=== PATIENT | male | born 1970 | race Caucasian/White ===

== ENCOUNTER 2021-10-17 02:27 | Inpatient (IN) | payer MEDICARE, OTHER ==
[~2021-10-17] VITALS: Ht 177.8 cm; Wt 83.9 kg
[2021-10-17] MEDS ORDERED: NITROGLYCERIN OINT 1 GM PACKET TP ONE ×2 (02:45→02:53)
[2021-10-17] MEDS ORDERED: ONDANSETRON 4 MG/2 ML VIAL IV ONE (02:45)
[2021-10-17] MEDS ORDERED: HYDROMORPHONE 1 MG/1 ML DISP.SYRIN IV ONE ×2 (02:45)
[2021-10-17] MEDS ORDERED: ONDANSETRON 4 MG/2 ML VIAL ONE (02:52)
[2021-10-17 02:55] LABS: HEMATOCRIT 42.4 % (36.7-47.1); MEAN CORPUSCULAR HEMOGLOBIN 32.7 uug (23.8-33.4); MEAN CORPUSCULAR VOLUME 95.4 fL (73.0-96.2); PLATELET COUNT (AUTO) 197 K/uL (152-348)
[2021-10-17] MEDS ORDERED: HYDROMORPHONE 1 MG/1 ML DISP.SYRIN ONE (02:55)
[2021-10-17 03:02] LABS: CREATININE 0.7 mg/dL (0.6-1.3); POTASSIUM 4.5 mmol/L (3.5-5.1)
[2021-10-17 03:15] LABS: BILIRUBIN,DIRECT 0.1 mg/dL (0.0-0.2); BILIRUBIN,TOTAL 0.3 mg/dL (0.2-1.0); TOTAL PROTEIN, SERUM 7.2 g/dL (6.4-8.2)
[2021-10-17] MEDS ORDERED: IV NORMAL SALINE 500 ML BAG IV ONE (03:15)
[2021-10-17] MEDS ORDERED: ASPI81TA31 GT (03:32)
[2021-10-17] MEDS ORDERED: OMEG1CAP40 GT (03:32)
[2021-10-17] MEDS ORDERED: LISI2.5T14 GT (03:32)
[2021-10-17] MEDS ORDERED: LEVE100S GT (03:32)
[2021-10-17] MEDS ORDERED: CHLO473M3 PO (03:32)
[2021-10-17] MEDS ORDERED: MELA5TAB GT (03:32)
[2021-10-17] MEDS ORDERED: NICO-671 TD (03:32)
[2021-10-17] MEDS ORDERED: OMEP20CA15 GT (03:32)
[2021-10-17] MEDS ORDERED: FLORASTOR GT (03:32)
[2021-10-17] MEDS ORDERED: GUAIFENESIN SYRUP GT (03:32)
[2021-10-17] MEDS ORDERED: AMIO200T5 GT (03:32)
[2021-10-17] MEDS ORDERED: MULT-213 GT (03:32)
[2021-10-17] MEDS ORDERED: ACET-2154 GT (03:32)
[2021-10-17] MEDS ORDERED: OXYC5TAB3 GT (03:32)
[2021-10-17] MEDS ORDERED: METO50TA16 GT (03:32)
[2021-10-17] MEDS ORDERED: QUET25TA36 GT (03:32)
[2021-10-17] MEDS ORDERED: METF-440 GT (03:32)
[2021-10-17] MEDS ORDERED: DOCU100C36 GT (03:32)
[2021-10-17] MEDS ORDERED: SPIR25TA6 GT (03:32)
[2021-10-17] MEDS ORDERED: INSULIN GLARGINE SUBCUT (03:32)
[2021-10-17] MEDS ORDERED: BISA10SU61 RC (03:32)
[2021-10-17] MEDS ORDERED: NA P133E RC (03:32)
[2021-10-17] MEDS ORDERED: RIVA10TA GT (03:32)
[2021-10-17] MEDS ORDERED: ASCO500C18 GT (03:32)
[2021-10-17] MEDS ORDERED: SENN-18 GT (03:32)
[2021-10-17] MEDS ORDERED: AMIN30LI2 GT (03:32)
[2021-10-17] MEDS ORDERED: IPRA4AER IH (03:32)
[2021-10-17] MEDS ORDERED: MAG30ORA GT (03:32)
[2021-10-17] MEDS ORDERED: ATOR80TA GT (03:32)
[2021-10-17] MEDS ORDERED: MAGN400O6 GT (03:32)
[2021-10-17] MEDS ORDERED: ONDA-104 GT (03:32)
[2021-10-17] MEDS ORDERED: BROM2.5T15 GT (03:32)
--- NOTE | 2021-10-17 03:59 | NUR ---
Bed assignment 318
--- NOTE | 2021-10-17 04:22 | NUR ---
Called [facility] for panel call, Stephany Beyer was paged.
[2021-10-17] MEDS ORDERED: DEXTROSE 50% 50 ML DISP.SYRIN IV PRN (04:30)
[2021-10-17] MEDS ORDERED: ONDANSETRON HCL 4 MG TABLET GT PRN (04:30)
[2021-10-17] MEDS ORDERED: ACETAMINOPHEN 325 MG TABLET-SA PATIENTS-PAIN ONLY GT PRN (04:30)
[2021-10-17] MEDS ORDERED: BISACODYL 10 MG SUPP.RECT RC PRN (04:30)
[2021-10-17] MEDS ORDERED: MAGNESIUM HYDROXIDE 30 ML LIQUID UDC GT PRN (04:30)
[2021-10-17] MEDS ORDERED: MAG HYDROX/AL HYDROX/SIMETH 30 ML LIQUID UDC GT PRN (04:30)
[2021-10-17] MEDS ORDERED: INSULIN REGULAR, HUMAN 300 UNIT/3 ML VIAL SQ PRN (04:30)
[2021-10-17] MEDS ORDERED: OXYCODONE HCL 5 MG TABLET GT PRN (04:30)
[2021-10-17] MEDS ORDERED: FLEET ENEMA 133 ML BOTTLE RC PRN (04:30)
[2021-10-17] MEDS ORDERED: Z GUARD REMEDY PASTE 57 GM TUBE TOP PRN (04:30)
[2021-10-17] MEDS ORDERED: ACETAMINOPHEN 325 MG TABLET PO PRN (04:30)
[2021-10-17] MEDS ORDERED: HYDROMORPHONE 1 MG/1 ML DISP.SYRIN IV PRN (04:30)
[2021-10-17] MEDS ORDERED: ONDANSETRON 4 MG/2 ML VIAL IV PRN (04:30)
[2021-10-17] MEDS ORDERED: MAGNESIUM HYDROXIDE 30 ML LIQUID UDC PO PRN (04:30)
--- NOTE | 2021-10-17 06:15 | NUR ---
RECEIVED PATIENT VIA GURNEY FROM ER. PATIENT IS A/O X2-3. C/O PAIN ON LEFT SIDE. DENIES ANY "CHEST PAIN." ON O2 2L NC SATING WELL. NO RESP. DISTRESS NOTED. PATIENT PLACED ON TELE ORDERED, SR WITH 1ST DEGREE AVB. H/L INTACT AND PATENT. ORIENTED TO ROOM AND CALL LIGHT. BLOOD SUGAR TAKEN, 133. NO INSULIN GIVEN AT THIS TIME. PATIENT IS NOT RECEIVING ANY TUBE FEEDING AT THIS TIME. LAB COURIER NOTIFIED. ALL NEEDS ATTENDED.
[2021-10-17] MEDS: BLOOD SUGAR DIAGNOSTIC 1 EACH STRIP VI SCH ×3 (06:24→17:30)
[2021-10-17] MEDS ORDERED: GLUCERNA 1.2 1000ML LIQUID GT PRN (06:45)
[2021-10-17 06:48] VITALS: BP 113/61
--- NOTE | 2021-10-17 07:20 | NUR ---
Received patient resting in bed, easily arousable. On 2L O2 via NC. No signs of acute distress. Patient denies pain/ discomfort at this time. Call light within reach. Bed alarm on for safety. Will continue to monitor.
[2021-10-17] MEDS: PROTEIN SUPPLEMENT (PROSTAT) 30 ML LIQUID PO SCH (08:00)
[2021-10-17] MEDS ORDERED: MELATONIN 3 MG TABLET GT SCH (08:30)
[2021-10-17] MEDS ORDERED: MELATONIN 3 MG TABLET GT PRN (08:30)
[2021-10-17] MEDS: DOCUSATE SODIUM 100 MG/10 ML LIQUID UDC GT SCH ×2 (09:00→17:00)
[2021-10-17] MEDS: NICOTINE 14 MG/24HR PATCH TD SCH (09:00)
[2021-10-17] MEDS ORDERED: Medication Not On Formulary EA (Omega-3 Fatty Acids/Fish Oil (Omega 3 1,000 Mg Softgel) GT SCH (09:00)
[2021-10-17] MEDS ORDERED: Medication Not On Formulary EA (Ascorbic Acid (Vitamin C) 500 MG) GT SCH (09:00)
[2021-10-17] MEDS: levETIRAcetam 500 MG/5 ML LIQUID UDC GT SCH ×2 (09:00→17:00)
[2021-10-17] MEDS: MULTIVIT, IRON, MIN NO. 8, FA TABLET GT SCH (09:00)
[2021-10-17] MEDS ORDERED: Medication Not On Formulary EA (Amino Acids/Protein Hydrolys (Pro-Stat Liquid) 30 ML) GT SCH (09:00)
[2021-10-17] MEDS: ASPIRIN 81 MG TAB.CHEW GT SCH (09:00)
[2021-10-17] MEDS ORDERED: Medication Not On Formulary EA (Multivitamins W-Minerals (Daily Multivitamin-Minerals) 1 GT SCH (09:00)
[2021-10-17] MEDS: LISINOPRIL 5 MG TABLET GT SCH (09:00)
[2021-10-17] MEDS ORDERED: Medication Not On Formulary EA (Omeprazole 20 MG) GT SCH (09:00)
[2021-10-17] MEDS ORDERED: DOCUSATE SODIUM 100 MG CAPSULE PO SCH (09:00)
[2021-10-17] MEDS: SPIRONOLACTONE 25 MG TABLET GT SCH (09:00)
[2021-10-17] MEDS: METOPROLOL TARTRATE 50 MG TABLET GT SCH ×2 (09:00→17:00)
[2021-10-17] MEDS ORDERED: Medication Not On Formulary EA (Bromocriptine Mesylate 2.5 MG) GT SCH (09:00)
[2021-10-17] MEDS: PANTOPRAZOLE ORAL SUSPENSION 40 MG SUSPDR.PKT GT SCH (09:00)
[2021-10-17] MEDS: RIVAROXABAN 10 MG TABLET GT SCH (09:00)
[2021-10-17] MEDS: OMEGA-3 FATTY ACIDS/FISH OIL CAPSULE GT SCH (09:00)
[2021-10-17] MEDS: AMIODARONE HCL 200 MG TABLET GT SCH ×2 (09:00→17:00)
[2021-10-17] MEDS: ASCORBIC ACID 500 MG TABLET GT SCH (09:06)
[2021-10-17] MEDS: CHLORHEXIDINE GLUCONATE 15 ML MOUTHWASH MM SCH ×2 (10:08→17:29)
--- NOTE | 2021-10-17 10:59 | NUR ---
Patient refused blood draw. Explained to patient the need and risks of refusal. Patient verbalized understanding. APPLICATION DEVELOPER MANAGER informed. Will continue to monitor.
[2021-10-17] MEDS: CULTURELLE CAPSULE GT SCH (11:00)
[2021-10-17 11:18] VITALS: BP 98/57
[2021-10-17 16:00] VITALS: BP 103/56
--- NOTE | 2021-10-17 18:42 | NUR ---
Patient resting in bed. AOx4. On 2L O2 via NC, saturating 96-97%. No signs of acute distress. Patient denies chest pain. Sinus Bradycardia with 1st degree HB on monitoring coordinator. Noncompliant with medications. Patient refused all medications, stated that he does not want take medications orally. Patient refused blood draws x3, despite explanation of risks of refusal and need for blood draw. IV access patent and intact. Bed alarm on for safety. Call light within reach. Will endorse to incoming shift for continuity of care.
[2021-10-17 20:00] VITALS: BP 119/65
[2021-10-17] MEDS ORDERED: SENNOSIDES 1 TABLET GT SCH (21:00)
[2021-10-17] MEDS ORDERED: QUETIAPINE FUMARATE 25 MG TABLET GT SCH (21:00)
[2021-10-17] MEDS ORDERED: INSULIN GLARGINE,HUM 300 UNITS/3 ML CARTRIDGE SQ SCH (21:00)
[2021-10-17] MEDS ORDERED: ATORVASTATIN 40 MG TABLET GT SCH (21:00)
[2021-10-17] MEDS ORDERED: Medication Not On Formulary EA (Atorvastatin Calcium (Lipitor) 80 MG) GT SCH (21:00)
[2021-10-17] MEDS ORDERED: Medication Not On Formulary EA (Melatonin 10 MG) GT SCH (21:00)
[2021-10-18] MEDS: BLOOD SUGAR DIAGNOSTIC 1 EACH STRIP VI SCH ×3 (00:02→12:00)
[2021-10-18 00:38] VITALS: BP 115/59
[2021-10-18 04:00] VITALS: BP 120/71
--- NOTE | 2021-10-18 05:57 | NUR ---
Shift End Report: Alert , cooprerative and compliant with the plan of care last night. All needs attended. Medicated for pain, once with OxyIR and the other one Tylenol with both with relief. Slept good after that No s/s of hypo/hyperglycemia. This morning , he refused lab draw and accu-check. quite irritable and upset. Will endorse to oncoming shift. Vs stable. Continue care as planned. No significant event reported all night.
[2021-10-18] MEDS: OMEGA-3 FATTY ACIDS/FISH OIL CAPSULE GT SCH (08:17)
[2021-10-18] MEDS: DOCUSATE SODIUM 100 MG/10 ML LIQUID UDC GT SCH (08:17)
[2021-10-18] MEDS: ASPIRIN 81 MG TAB.CHEW GT SCH (08:17)
[2021-10-18] MEDS: ASCORBIC ACID 500 MG TABLET GT SCH (08:18)
[2021-10-18] MEDS: CULTURELLE CAPSULE GT SCH (08:18)
[2021-10-18] MEDS: MULTIVIT, IRON, MIN NO. 8, FA TABLET GT SCH (08:18)
[2021-10-18] MEDS: SPIRONOLACTONE 25 MG TABLET GT SCH (08:18)
[2021-10-18] MEDS: levETIRAcetam 500 MG/5 ML LIQUID UDC GT SCH (08:19)
[2021-10-18] MEDS: METOPROLOL TARTRATE 50 MG TABLET GT SCH (08:21)
[2021-10-18] MEDS: LISINOPRIL 5 MG TABLET GT SCH (08:21)
[2021-10-18] MEDS: PANTOPRAZOLE ORAL SUSPENSION 40 MG SUSPDR.PKT GT SCH (08:22)
[2021-10-18] MEDS: AMIODARONE HCL 200 MG TABLET GT SCH (08:22)
[2021-10-18] MEDS: CHLORHEXIDINE GLUCONATE 15 ML MOUTHWASH MM SCH (08:23)
[2021-10-18] MEDS: NICOTINE 14 MG/24HR PATCH TD SCH (08:23)
[2021-10-18] MEDS: PROTEIN SUPPLEMENT (PROSTAT) 30 ML LIQUID PO SCH (08:28)
[2021-10-18] MEDS: RIVAROXABAN 10 MG TABLET GT SCH (09:51)
--- NOTE | 2021-10-18 11:00 | NUR ---
received order for discharge.
--- NOTE | 2021-10-18 12:00 | NUR ---
new discharge orders patient to return to [facility] per case management, transportation scheduled for 1500.
--- NOTE | 2021-10-18 12:00 | NUR ---
patient refused blood sugar x3 explained risks and benefits continued to refused stated " no my fingers hurt"
[2021-10-18 12:24] VITALS: BP 111/57
--- NOTE | 2021-10-18 12:49 | NUR ---
report called to len MENDOZA at [facility], all questions answered.
--- NOTE | 2021-10-18 14:15 | NUR ---
discharge orders relayed to patient. explained to follow up with cardiology within 1 week and to follow up with primary healthcare provider. to continue with current medication regimen and to return [facility] or call 911 if symptoms worsen. patient states understanding. belongings list inventory completed. all paperwork signed.
--- NOTE | 2021-10-18 15:25 | NUR ---
patient states it hurts in the middle of my chest, states the pain is just in the center and does not radiate. V/S 113/53 P. 61 RR: 18 t: 98.2 spo2 96 on 2L, on telemetry it shows normal sinus rhythm. Jericho GOMEZ made aware with ok to transfer patient back to [facility].
--- NOTE | 2021-10-18 15:25 | NUR ---
ambulance company accompanied by RT in unit, report given to them all questions answered.
--- NOTE | 2021-10-18 15:30 | NUR ---
called [facility] and informed them of patient w/ c/o pain to mid chest and of stable v/s, normal sinus rhythm spoke to terrence MENDOZA, also informed them that SOLAR SALES AMBASSADOR was aware and with ok to have patient return to facility.
== END 2021-10-18 15:30 | DRG 951 ==
LOC: ER 02:31 → TELE3 03:55
PROVIDERS: ADMIT Nurse Practitioner Family; ATTEND Nurse Practitioner Family
DX: Z76.5 Malingerer [conscious simulation] (principal); I69.354 Hemiplegia and hemiparesis following cerebral infarction affecting left non-dominant side; I42.9 Cardiomyopathy, unspecified; R07.9 Chest pain, unspecified; E11.9 Type 2 diabetes mellitus without complications; E78.5 Hyperlipidemia, unspecified; F17.210 Nicotine dependence, cigarettes, uncomplicated; I48.0 Paroxysmal atrial fibrillation; Z91.19 Patient's noncompliance with other medical treatment and regimen; Z93.1 Gastrostomy status; Z93.0 Tracheostomy status; Z86.718 Personal history of other venous thrombosis and embolism; Z79.01 Long term (current) use of anticoagulants; M06.9 Rheumatoid arthritis, unspecified; J44.9 Chronic obstructive pulmonary disease, unspecified; R13.10 Dysphagia, unspecified; G89.29 Other chronic pain; I50.9 Heart failure, unspecified; M24.542 Contracture, left hand; I11.0 Hypertensive heart disease with heart failure; Z79.84 Long term (current) use of oral hypoglycemic drugs; Z20.822 Contact with and (suspected) exposure to COVID-19
CPT/HCPCS: 36415; 70030-TC; 71045; 71250; 85025; 85730; 93005; 93307; G0378; J1170; J1815; J2405; J7040

== ENCOUNTER 2023-02-12 18:52 | Emergency (ER) | payer MEDICARE, OTHER ==
[~2023-02-12] VITALS: Ht 172.7 cm; Wt 68.9 kg
[~2023-02-12 18:52] MED LIST: ACET-2154 GT; AMIN30LI2 GT; AMIO200T5 GT; ASCO500C18 GT; ASPI81TA31 GT; ATOR80TA GT; BISA10SU61 RC; BROM2.5T15 GT; CHLO473M3 PO; DOCU100C36 GT; FLORASTOR GT; GUAIFENESIN SYRUP GT; INSULIN GLARGINE SUBCUT; IPRA4AER IH; LEVE100S GT; LISI2.5T14 GT; MAG30ORA GT; MAGN400O6 GT; MELA5TAB GT; METF-440 GT; METO50TA16 GT; MULT-213 GT; NA P133E RC; NICO-671 TD; OMEG1CAP40 GT; OMEP20CA15 GT; ONDA-104 GT; OXYC5TAB3 GT; QUET25TA36 GT; RIVA10TA GT; SENN-18 GT; SPIR25TA6 GT
--- NOTE | 2023-02-12 19:04 | NUR ---
Patient connected to traffic monitor specialist and endorse care to incoming shift.
--- NOTE | 2023-02-12 19:12 | NUR ---
Dr. Garcia at bedside. MSE in progress.
[2023-02-12] MEDS ORDERED: ALBU2.5V38 NEB (19:13)
--- NOTE | 2023-02-12 19:17 | NUR ---
Patient refused blood draw. notified
--- NOTE | 2023-02-12 19:41 | NUR ---
Xray at bedside.
--- NOTE | 2023-02-12 20:30 | NUR ---
Patient unable to provide urine sample
[2023-02-12 21:35] LABS: CARBON DIOXIDE 22 mmol/L (21-32); CHLORIDE 109 mmol/L (98-107); GLUCOSE 69 mg/dL (74-106); POTASSIUM 3.9 mmol/L (3.5-5.1); UREA NITROGEN, BLOOD 23 mg/dL (7-18)
[2023-02-12 22:52] LABS: HEMATOCRIT 41.2 % (36.7-47.1); MEAN CORPUSCULAR HEMOGLOBIN 30.3 uug (23.8-33.4); MEAN CORPUSCULAR VOLUME 89.9 fL (73.0-96.2); PLATELET COUNT (AUTO) 197 K/uL (152-348)
[2023-02-12 23:11] LABS: MAGNESIUM 1.8 mg/dL (1.8-2.4)
[2023-02-12 23:18] LABS: CREATININE 0.5 mg/dL (0.6-1.3); UREA NITROGEN, BLOOD 23 mg/dL (7-18)
--- NOTE | 2023-02-13 00:30 | NUR ---
Called [facility] ambulance for transport ETA 75-90 mins
--- NOTE | 2023-02-13 02:50 | NUR ---
Patient discharged to home in stable condition via gurney picked up by [id number]. Written and verbal after care instructions given. Patient verbalizes understanding of instructions. Stressed follow up or return to ER for worsening s/s.
--- NOTE | 2023-02-13 02:50 | NUR ---
[facility] ambulance picked up patient to be discharged back to [facility]. Patient in stable condition, no signs of distress.
[2023-02-13 03:29] VITALS: BP 115/62
== END 2023-02-13 02:50 | disposition home or self-care (01) ==
LOC: ER 18:52
DX: R00.1 Bradycardia, unspecified (principal); I95.9 Hypotension, unspecified; I50.9 Heart failure, unspecified; K21.9 Gastro-esophageal reflux disease without esophagitis; E11.9 Type 2 diabetes mellitus without complications; Z91.040 Latex allergy status; Z91.048 Other nonmedicinal substance allergy status; Z79.82 Long term (current) use of aspirin; Z79.899 Other long term (current) drug therapy; Z79.4 Long term (current) use of insulin; Z20.822 Contact with and (suspected) exposure to COVID-19
CPT/HCPCS: 36415; 71045; 83605; 83735; 84484; 84520; 85025; 93005; A4663; C1758